=== PATIENT | female | born 2000 | race American Indian/Alaskan Native ===

== ENCOUNTER 2020-05-20 17:42 | Emergency (ER) | payer OTHER ==
[2020-05-20 17:57] VITALS: BP 135/72
--- NOTE | 2020-05-20 18:29 | Event Note ---
ED Screening Note Date of service: 05/20/20 Time: 18:26 ED Screening Note: Pt is a 19 y/o aaf who presents for n/v/d x 1 week with intermittent fevers, no tmax notd at home no fever in triages last po intake this am with n/v, LMP 1 month ago, abd pain described as cramping aching 5/10, there is no vaginal discharge, no bleeding, denies dysuria , frequency, or urgency. Symptoms are exacerbated by po intake, symptoms are relieved by nothing. This initial assessment/diagnostic orders/clinical plan/treatment(s) is/are subject to change based on patients health status, clinical progression and re- assessment by fellow clinical providers in the ED. Further treatment and workup at subsequent clinical providers discretion. Patient/guardian urged not to elope from the ED as their condition may be serious if not clinically assessed and managed. Initial orders include: CMP, CBC, Lipase, UA, HCG
[2020-05-20 19:03] LABS: HCG Qualitative,Urine Positive (Negative)
[2020-05-20 19:06] LABS: Bilirubin,Urine NEG (Negative); Blood,Urine NEG (Negative); Color,Urine Yellow (Yellow); Mucus,Urine FEW /HPF; Protein,Urine <15 mg/dL mg/dL (Negative); Urobilinogen,Urine < 2.0 mg/dL (<2.0); WBC,Urine < 1.0 /HPF (0.0-6.0)
[2020-05-20 19:27] LABS: Basophils % (Auto) 0.2 % (0.0-1.8); Eosinophils # (Auto) 0.1 K/mm3 (0.0-0.4); Eosinophils % (Auto) 0.9 % (0.0-4.3); Hematocrit 39.7 % (30.3-42.9); Hemoglobin 13.5 gm/dl (10.1-14.3); Lymphocytes # (Auto) 1.4 K/mm3 (1.2-5.4); Lymphocytes % (Auto) 23.8 % (13.4-35.0); Mean Corpuscular HGB Conc 34 % (30-34); Mean Corpuscular Volume 90 fl (79-97); Monocytes # (Auto) 0.7 K/mm3 (0.0-0.8); Monocytes % (Auto) 10.9 % (0.0-7.3); Platelet Count 215 K/mm3 (140-440); Red Blood Count 4.39 M/mm3 (3.65-5.03); Red Cell Distribution Width 12.5 % (13.2-15.2)
[2020-05-20 19:39] LABS: Alanine Aminotransferase 12 units/L (7-56); Albumin 4.5 g/dL (3.9-5); Blood Urea Nitrogen 9 mg/dL (7-17); Calcium 9.4 mg/dL (8.4-10.2); Hemolysis Index 5
[2020-05-20 19:49] LABS: BUN/Creatinine Ratio 15
--- NOTE | 2020-05-20 20:39 | Ultrasound Report ---
ULTRASOUND OBSTETRIC INDICATION: First trimester with abdominal pain. TECHNIQUE: Transabdominal. COMPARISON: None available. FINDINGS: GESTATIONAL SAC: Well-defined oval shape and intrauterine in location. YOLK SAC: No significant abnormality. EMBRYO/FETUS: No significant abnormality. - [place]-Rump Length = 0.8 cm = 6 weeks, 5 day(s). - Heart Rate = 152 beats per minute. ADNEXA: A right ovarian dominant follicle measures up to 1.5 cm. The left ovary is not seen. FREE FLUID: None. ADDITIONAL FINDINGS: None. IMPRESSION: 1. Single, living intrauterine with estimated sonographic age of 6 weeks, 5 day(s). Signer Name: Thong Olivera MD Signed: 05/20/2020 8:35 PM Workstation Name: [id number]
--- NOTE | 2020-05-20 21:20 | Emergency Department Report ---
ED General Adult HPI - General Chief complaint: Nausea/Vomiting/Diarrhea Stated complaint: VOMITING;STOMACH PAIN; HEADACHE Time Seen by Provider: 05/20/20 21:17 Source: patient Mode of arrival: Ambulatory Limitations: No Limitations - History of Present Illness Initial comments: Patient is a 19-year-old female presents emergency room with complaints of morning sickness that began a week ago. She states that she has intermittent vomiting just in the morning time. She is able to tolerate p.o. intake. She denies any nausea or vomiting currently. She states that she is also been having some lower abdominal cramping. Patient states that she has been having a few episodes of diarrhea. She states that she had a subjective fever last week but that has completely resolved and she has not had a fever for a week. She denies any vaginal bleeding, vaginal discharge, dysuria, chest pain, shortness of breath, cough, hematochezia, hematemesis, melena, pus in the stool. She denies any sick contacts, recent travel, recent antibiotics, recent camping, water from a different source. She denies any past medical history. No allergies to medications. Last menstrual cycle 04/04/2020. She states this is her first . - Related Data Previous Rx's Medication Instructions Recorded Last Taken Type Acetaminophen [Tylenol] 650 mg PO Q8HR PRN #20 capsule 05/20/20 Unknown Rx Metoclopramide [Reglan] 10 mg PO Q8HR PRN #12 tab 05/20/20 Unknown Rx Allergies Allergy/AdvReac Type Severity Reaction Status Date / Time No Known Allergies Allergy Unverified 05/20/20 17:56 ED Review of Systems ROS: Stated complaint: VOMITING;STOMACH PAIN; HEADACHE Other details as noted in HPI Comment: All other systems reviewed and negative ED Past Medical Hx - Past Medical History Previous Medical History?: No - Surgical History Past Surgical History?: No - Medications Home Medications: Home Medications Medication Instructions Recorded Confirmed Last Taken Type Acetaminophen [Tylenol] 650 mg PO Q8HR PRN #20 capsule 05/20/20 Unknown Rx Metoclopramide [Reglan] 10 mg PO Q8HR PRN #12 tab 05/20/20 Unknown Rx ED Physical Exam - General Limitations: No Limitations General appearance: alert, in no apparent distress - Head Head exam: Present: atraumatic, normocephalic - Eye Eye exam: Present: normal appearance - ENT ENT exam: Present: mucous membranes moist - Respiratory Respiratory exam: Present: normal lung sounds bilaterally. Absent: respiratory distress, wheezes, rales, rhonchi, stridor, chest wall tenderness, accessory muscle use, decreased breath sounds, prolonged expiratory - Cardiovascular Cardiovascular Exam: Present: regular rate, normal rhythm, normal heart sounds. Absent: systolic murmur, diastolic murmur, rubs, gallop - GI/Abdominal GI/Abdominal exam: Present: soft, normal bowel sounds. Absent: distended, tenderness, guarding, rebound, rigid - Neurological Exam Neurological exam: Present: alert, oriented X3 - Psychiatric Psychiatric exam: Present: normal affect, normal mood - Skin Skin exam: Present: warm, dry, intact ED Course Vital Signs 05/20/20 17:56 Temperature 98 F Pulse Rate 100 H Respiratory 16 Rate Blood Pressure 135/72 [Right] O2 Sat by Pulse 98 Oximetry ED Medical Decision Making - Lab Data Result diagrams: 05/20/20 18:58 05/20/20 18:58 Lab Results 05/20/20 05/20/20 05/20/20 Range/Units 18:58 18:58 18:58 WBC 6.0 (4.5-11.0) K/mm3 RBC 4.39 (3.65-5.03) M/mm3 Hgb 13.5 (10.1-14.3) gm/dl Hct 39.7 (30.3-42.9) % MCV 90 (79-97) fl MCH 31 (28-32) pg MCHC 34 (30-34) % RDW 12.5 L (13.2-15.2) % Plt Count 215 (140-440) K/mm3 Lymph % (Auto) 23.8 (13.4-35.0) % [place] % (Auto) 10.9 H (0.0-7.3) % Eos % (Auto) 0.9 (0.0-4.3) % Baso % (Auto) 0.2 (0.0-1.8) % Lymph # (Auto) 1.4 (1.2-5.4) K/mm3 [place] # (Auto) 0.7 (0.0-0.8) K/mm3 Eos # (Auto) 0.1 (0.0-0.4) K/mm3 Baso # (Auto) 0.0 (0.0-0.1) K/mm3 Seg Neutrophils % 64.2 (40.0-70.0) % Seg Neutrophils # 3.9 (1.8-7.7) K/mm3 Sodium 137 (137-145) mmol/L Potassium 3.9 (3.6-5.0) mmol/L Chloride 104.2 (98-107) mmol/L Carbon Dioxide 22 (22-30) mmol/L Anion Gap 15 mmol/L BUN 9 (7-17) mg/dL Creatinine 0.6 (0.6-1.2) mg/dL Estimated GFR > 60 ml/min BUN/Creatinine Ratio 15 % Glucose 78 (65-100) mg/dL Calcium 9.4 (8.4-10.2) mg/dL Total Bilirubin 0.20 (0.1-1.2) mg/dL AST 16 (5-40) units/L ALT 12 (7-56) units/L Alkaline Phosphatase 54 (35-129) units/L Total Protein 7.3 (6.3-8.2) g/dL Albumin 4.5 (3.9-5) g/dL Albumin/Globulin Ratio 1.6 % Lipase 27 (13-60) units/L HCG, Quant (0-4) mIU/mL Urine Color (Yellow) Urine Turbidity (Clear) Urine pH (5.0-7.0) Ur Specific [place] (1.003-1.030) Urine Protein (Negative) mg/dL Urine Glucose (UA) (Negative) mg/dL Urine Ketones (Negative) mg/dL Urine Blood (Negative) Urine Nitrite (Negative) Ur Reducing Substances Urine Bilirubin (Negative) Urine Ictotest Urine Urobilinogen (<2.0) mg/dL Ur Leukocyte Esterase (Negative) Urine WBC (Auto) (0.0-6.0) /HPF Urine RBC (Auto) (0.0-6.0) /HPF U Epithel Cells (Auto) (0-13.0) /HPF Urine Mucus /HPF Urine HCG, Qual (Negative) 05/20/20 05/20/20 Range/Units 18:58 Unknown WBC (4.5-11.0) K/mm3 RBC (3.65-5.03) M/mm3 Hgb (10.1-14.3) gm/dl Hct (30.3-42.9) % MCV (79-97) fl MCH (28-32) pg MCHC (30-34) % RDW (13.2-15.2) % Plt Count (140-440) K/mm3 Lymph % (Auto) (13.4-35.0) % [place] % (Auto) (0.0-7.3) % Eos % (Auto) (0.0-4.3) % Baso % (Auto) (0.0-1.8) % Lymph # (Auto) (1.2-5.4) K/mm3 [place] # (Auto) (0.0-0.8) K/mm3 Eos # (Auto) (0.0-0.4) K/mm3 Baso # (Auto) (0.0-0.1) K/mm3 Seg Neutrophils % (40.0-70.0) % Seg Neutrophils # (1.8-7.7) K/mm3 Sodium (137-145) mmol/L Potassium (3.6-5.0) mmol/L Chloride (98-107) mmol/L Carbon Dioxide (22-30) mmol/L Anion Gap mmol/L BUN (7-17) mg/dL Creatinine (0.6-1.2) mg/dL Estimated GFR ml/min BUN/Creatinine Ratio % Glucose (65-100) mg/dL Calcium (8.4-10.2) mg/dL Total Bilirubin (0.1-1.2) mg/dL AST (5-40) units/L ALT (7-56) units/L Alkaline Phosphatase (35-129) units/L Total Protein (6.3-8.2) g/dL Albumin (3.9-5) g/dL Albumin/Globulin Ratio % Lipase (13-60) units/L HCG, Quant 00212 H (0-4) mIU/mL Urine Color Yellow (Yellow) Urine Turbidity Clear (Clear) Urine pH 7.0 (5.0-7.0) Ur Specific [place] 1.024 (1.003-1.030) Urine Protein <15 mg/dl (Negative) mg/dL Urine Glucose (UA) Neg (Negative) mg/dL Urine Ketones Neg (Negative) mg/dL Urine Blood Neg (Negative) Urine Nitrite Neg (Negative) Ur Reducing Substances Not Reportable Urine Bilirubin Neg (Negative) Urine Ictotest Not Reportable Urine Urobilinogen < 2.0 (<2.0) mg/dL Ur Leukocyte Esterase Neg (Negative) Urine WBC (Auto) < 1.0 (0.0-6.0) /HPF Urine RBC (Auto) 1.0 (0.0-6.0) /HPF U Epithel Cells (Auto) 9.0 (0-13.0) /HPF Urine Mucus Few /HPF Urine HCG, Qual Positive A (Negative) - Radiology Data Radiology results: report reviewed Ordering Physician: AV ART Date of Service: 05/20/20 Procedure(s): US OB <= 14 weeks fetus Accession Number(s): [id number] cc: AV ART ULTRASOUND OBSTETRIC INDICATION: First trimester with abdominal pain. TECHNIQUE: Transabdominal. COMPARISON: None available. FINDINGS: GESTATIONAL SAC: Well-defined oval shape and intrauterine in location. YOLK SAC: No significant abnormality. EMBRYO/FETUS: No significant abnormality. - [place]-Rump Length = 0.8 cm = 6 weeks, 5 day(s). - Heart Rate = 152 beats per minute. ADNEXA: A right ovarian dominant follicle measures up to 1.5 cm. The left ovary is not seen. FREE FLUID: None. ADDITIONAL FINDINGS: None. IMPRESSION: 1. Single, living intrauterine with estimated sonographic age of 6 weeks, 5 day(s). Signer Name: Thong Olivera MD Signed: 05/20/2020 8:35 PM Workstation Name: [id number] Transcribed By: MN Dictated By: Thong Olivera MD Electronically Authenticated By: Thong Olivera MD Signed Date/Time: 05/20/202034 DD/ 33 TD/TT: - Medical Decision Making Patient is a 19-year-old female presents emergency room with complaints of morning sickness that began a week ago. She states that she has intermittent vomiting just in the morning time. She is able to tolerate p.o. intake. She denies any nausea or vomiting currently. She states that she is also been having some lower abdominal cramping. Patient states that she has been having a few episodes of diarrhea. She states that she had a subjective fever last week but that has completely resolved and she has not had a fever for a week. She denies any vaginal bleeding, vaginal discharge, dysuria, chest pain, shortness of breath, cough, hematochezia, hematemesis, melena, pus in the stool. She denies any sick contacts, recent travel, recent antibiotics, recent camping, water from a different source. She denies any past medical history. No allergies to medications. Last menstrual cycle 04/04/2020. She states this is her first . VSS. No abdominal tenderness on exam, no guarding, no rebound, no rigidity, no bowel sounds, no peritoneal signs. [place] [address]. UA is within normal limits. OB ultrasound 1. Single, living intrauterine with estimated sonographic age of 6 weeks, 5 day(s). Patient is tolerating p.o. intake without difficulty. Discussed all results with patient answered questions. Symptoms could be related to morning sickness versus mild gastroenteritis. She has no clinical signs of dehydration, her labs do not show any evidence of dehydration. Do not suspect acute emergent intra-abdominal pathology, no leukocytosis, no fever, tolerating p.o. intake, no abdominal tenderness on exam. Patient has no obstructive symptoms. Patient given prescription for Tylenol and Reglan. Advised patient Please take medication as prescribed. Increase your water intake. Please take a vitamin [id number]. Follow-up with [facility]. Return to emergency room for new or worsening symptoms. Critical care attestation.: If time is entered above; I have spent that time in minutes in the direct care of this critically ill patient, excluding procedure time. ED Disposition Clinical Impression: Morning sickness Qualifiers: Weeks of gestation: less than 8 weeks Qualified Code(s): Z3A.01 - Less than 8 weeks gestation of Disposition: DC-01 TO HOME OR SELFCARE Is pt being admited?: No Does the pt Need Aspirin: No Condition: Stable Instructions: Morning Sickness, Cyop-fo-Flzw, First Trimester of Additional Instructions: Please take medication as prescribed. Increase your water intake. Please take a vitamin [id number]. Follow-up with [facility]. Return to [facility] room for new or worsening symptoms. Prescriptions: Metoclopramide [Reglan] 10 mg PO Q8HR PRN #12 tab PRN Reason: Nausea And Vomiting Acetaminophen [Tylenol] 650 mg PO Q8HR PRN #20 capsule PRN Reason: pain Referrals: PRIMARY CARE, [Primary Care Provider] - 2-3 Days [facility] [Provider Group] - 2-3 Days [facility] [Provider Group] - 2-3 Days [facility] [Provider Group] - 2-3 Days [facility] [Provider Group] - 2-3 Days Time of Disposition: 21:19 Print Language: TOGOLESE
== END 2020-05-20 21:22 | disposition home or self-care (01) ==
LOC: ED 17:42
DX: O21.8 Other vomiting complicating pregnancy (principal); Z3A.01 Less than 8 weeks gestation of pregnancy; Z79.899 Other long term (current) drug therapy
CPT/HCPCS: 36415; 76801; 80053; 81001; 81025; 83690; 84702; 85025

== ENCOUNTER 2020-06-16 12:26 | Emergency (ER) | payer OTHER ==
[2020-06-16 12:33] VITALS: BP 117/66
[2020-06-16] MEDS ORDERED: ONDANSETRON 4 MG/2 ML INJ IV ONE (12:54)
--- NOTE | 2020-06-16 12:55 | Emergency Department Report ---
ED N/V/D HPI - General Chief complaint: Nausea/Vomiting/Diarrhea Stated complaint: POSSIBLE DEHYDRATED/ Time Seen by Provider: 06/16/20 12:35 Source: patient Mode of arrival: Ambulatory Limitations: No Limitations - History of Present Illness Initial comments: 19 year old female who is currently about 11 weeks based based on her last menstrual cycle presents to the ER today with complaints of nausea and vomiting. Patient states that she has been having episodes of nausea and vomiting since she has been but since last 2 states been worse. She states that she has been having difficulty keeping any food or liquids down. Sh e states that she was prescribed Reglan from this ER once before which she has been taking it has not been helping. She states that she goes to both outside medical as well as my [facility]ING [facility]NAGER for care, she states that she has not decided which [facility]NA[facility] office she wants to stick with. She states that she did notify her doctor at [facility] about her nausea and vomiting and they called her in the same prescription for Reglan. She states that she feels like the Reglan is worsening her symptoms. She reports associated left-sided abdominal pain and urinary frequency but she denies any vaginal bleeding, diarrhea, fever, chills, or any other symptoms at this time. She is G1, P0. complaint: nausea, vomiting, other (11 weeks ) - Related Data Previous Rx's Medication Instructions Recorded Last Taken Type Acetaminophen [Tylenol] 650 mg PO Q8HR PRN #20 capsule 05/20/20 Unknown Rx Ondansetron [Zofran Odt] 4 mg PO Q8HR #12 tab.rapdis 06/16/20 Unknown Rx Allergies Allergy/AdvReac Type Severity Reaction Status Date / Time No Known Allergies Allergy Verified 06/16/20 12:29 ED Review of Systems ROS: Stated complaint: POSSIBLE DEHYDRATED/ Other details as noted in HPI Comment: All other systems reviewed and negative Constitutional: denies: chills, fever Eyes: denies: eye pain, eye discharge, vision change ENT: denies: ear pain, throat pain Respiratory: denies: cough, shortness of breath, wheezing Cardiovascular: denies: chest pain, palpitations Gastrointestinal: abdominal pain, nausea, vomiting Genitourinary: frequency. denies: urgency, dysuria, hematuria, discharge, abnormal menses, dyspareunia Musculoskeletal: denies: back pain, joint swelling, arthralgia Neurological: denies: headache, weakness, paresthesias Hematological/Lymphatic: denies: easy bleeding, easy bruising ED Past Medical Hx - Past Medical History Previous Medical History?: No - Surgical History Additional Surgical History: HERNIA - Social History Smoking Status: Never Smoker Substance Use Type: None - Medications Home Medications: Home Medications Medication Instructions Recorded Confirmed Last Taken Type Acetaminophen [Tylenol] 650 mg PO Q8HR PRN #20 capsule 05/20/20 Unknown Rx Ondansetron [Zofran Odt] 4 mg PO Q8HR #12 tab.rapdis 06/16/20 Unknown Rx ED Physical Exam - General Limitations: No Limitations General appearance: alert, in no apparent distress, other (Patient sipping on some water while in triage, and seems to be tolerating it. No vomiting noted) - Head Head exam: Present: atraumatic, normocephalic - Eye Eye exam: Present: normal appearance, PERRL, EOMI Pupils: Present: normal accommodation - ENT ENT exam: Present: normal exam, mucous membranes moist - Neck Neck exam: Present: normal inspection - Respiratory Respiratory exam: Present: normal lung sounds bilaterally. Absent: respiratory distress - Cardiovascular Cardiovascular Exam: Present: regular rate, normal rhythm, normal heart sounds - GI/Abdominal GI/Abdominal exam: Present: soft. Absent: distended, tenderness - Neurological Exam Neurological exam: Present: alert, oriented X3, CN II-XII intact, normal gait - Psychiatric Psychiatric exam: Present: normal affect, normal mood - Skin Skin exam: Present: intact ED Course Vital Signs 06/16/20 12:32 Temperature 99.0 F Pulse Rate 80 Respiratory 18 Rate Blood Pressure 117/66 O2 Sat by Pulse 98 Oximetry ED Medical Decision Making - Lab Data Result diagrams: 06/16/20 14:23 06/16/20 14:23 - Radiology Data Radiology results: report reviewed Ordering Physician: ALLISON RUIZ Date of Service: 06/16/20 Procedure(s): US OB transvaginal Accession Number(s): [id number] cc: ALLISON RUIZ ULTRASOUND OB TRANSVAGINAL HISTORY: Left-sided abdominal pain, 11 weeks COMPARISON: 05/20/2020 TECHNIQUE: Routine transabdominal OB ultrasound performed. FINDINGS: Uterus: Mildly enlarged measuring 12.5 x 5.8 x 8.8 cm. Gestational Sac: Well-defined oval shape and intrauterine in location. Yolk Sac: Not clearly seen Fetus/Embryo: [place]-rump length of 4.2 cm, corresponding to an estimated gestational age of 11 weeks 0 days. Embryonic/ anatomy is too small for evaluation. Embryonic/ cardiac activity: 186bpm Placenta: Too small for evaluation. Amniotic fluid volume: Subjectively appropriate for gestational age. Ovaries: The right ovary is normal in size with normal blood flow, measuring 3.9 x 2.2 x 2.6 cm. A 1.3 cm simple appearing right ovarian cyst is identified. The left ovary is normal in size and appearance with normal blood flow, measuring 2.8 x 1.4 x 2.5 cm. Additional findings: None. IMPRESSION Viable single intrauterine as described. No acute abnormality is detected. 1.3 cm right ovarian cyst. Signer Name: Deandre Reeves Jr, MD Signed: 06/16/2020 2:50 PM Workstation Name: [id number] Transcribed By: TTR Dictated By: DEANDRE REEVES JR, MD Electronically Authenticated By: DEANDRE REEVES JR, MD Signed Date/Time: 06/16/20 1450 DD/ 1446 TD/TT: - Medical Decision Making 19 year old female who is currently about 11 weeks based based on her last menstrual cycle presents to the ER today with complaints of nausea and vomiting. Patient states that she has been having episodes of nausea and vomiting since she has been but since last 2 states been worse. She states that she has been having difficulty keeping any food or liquids down. She states that she was prescribed Reglan from this ER once before which she has been taking it has not been helping. She states that she goes to both outside medical as well as my ART FRAMING MANAGER for care, she states that she has not decided which ART FRAMING MANAGER office she wants to stick with. She states that she did notify her doctor at [facility] about her nausea and vomiting and they called her in the same prescription for Reglan. She states that she feels like the Reglan is worsening her symptoms. She reports associated left-sided abdominal pain and urinary frequency but she denies any vaginal bleeding, diarrhea, fever, chills, or any other symptoms at this time. She is G1, P0. 1612: Patient reports feeling better after meds and fluids. She has been tolerating water and juice in ER and is now stating she is hungry and wants something to eat. Labs/US reviewed. W/u unremarkable today. US show live 11 wk IUP. Pt is well appearing, not not toxic and is not in any distress. Her VS have been stable. Discussed results with patient. Informed her to keep her appointment with [place] this . Will try zofran. She can stop the Reglan. Patient expressed understanding of instructions and agree with plan. Patient was stable at time of discharge. Critical care attestation.: If time is entered above; I have spent that time in minutes in the direct care of this critically ill patient, excluding procedure time. ED Disposition Clinical Impression: Vomiting during , Abdominal pain in Disposition: TO HOME OR SELFCARE Is pt being admited?: No Does the pt Need Aspirin: No Condition: Stable Instructions: Abdominal Pain During , [id number], Nausea and Vomiting, Adult, [id number], Morning Sickness, Oapu-hu-Skec Additional Instructions: I recommend that you take the Zofran as prescribed. You can stop the Reglan. I recommend that you try to sip on fluids frequently. Recommend a bland diet. Keep your appointment with your ART FRAMING MANAGER this coming . You can take Tylenol as needed for pain. Return to the ER if your symptoms changes or worsens in any way. Prescriptions: Ondansetron [Zofran Odt] 4 mg PO Q8HR #12 tab.rapdis Referrals: PRIMARY CARE, [Primary Care Provider] - 3-5 Days [facility] [Provider Group] - 3-5 Days Forms: Work/School Release Form(ED) Time of Disposition: 15:56
[2020-06-16] MEDS ORDERED: SODIUM CHLORIDE 0.9% 1000 ML 1,000 ML IV ONE (13:27)
[2020-06-16 13:42] LABS: Bacteria,Urine 1+ /HPF (Negative); Bilirubin,Urine NEG (Negative); Blood,Urine NEG (Negative); Color,Urine Yellow (Yellow); Mucus,Urine 3+ /HPF; Urobilinogen,Urine < 2.0 mg/dL (<2.0)
[2020-06-16 14:46] LABS: Basophils % (Auto) 0.2 % (0.0-1.8); Eosinophils % (Auto) 0.6 % (0.0-4.3); Hematocrit 37.2 % (30.3-42.9); Hemoglobin 12.8 gm/dl (10.1-14.3); Lymphocytes # (Auto) 1.1 K/mm3 (1.2-5.4); Mean Corpuscular HGB Conc 35 % (30-34); Mean Corpuscular Volume 90 fl (79-97); Monocytes # (Auto) 0.6 K/mm3 (0.0-0.8); Monocytes % (Auto) 11.4 % (0.0-7.3); Platelet Count 174 K/mm3 (140-440); Red Blood Count 4.13 M/mm3 (3.65-5.03); Red Cell Distribution Width 12.6 % (13.2-15.2)
--- NOTE | 2020-06-16 14:54 | Ultrasound Report ---
ULTRASOUND OB TRANSVAGINAL HISTORY: Left-sided abdominal pain, 11 weeks COMPARISON: 05/20/2020 TECHNIQUE: Routine transabdominal OB ultrasound performed. FINDINGS: Uterus: Mildly enlarged measuring 12.5 x 5.8 x 8.8 cm. Gestational Sac: Well-defined oval shape and intrauterine in location. Yolk Sac: Not clearly seen Fetus/Embryo: [place]-rump length of 4.2 cm, corresponding to an estimated gestational age of 11 weeks 0 days. Embryonic/ anatomy is too small for evaluation. Embryonic/ cardiac activity: 186bpm Placenta: Too small for evaluation. Amniotic fluid volume: Subjectively appropriate for gestational age. Ovaries: The right ovary is normal in size with normal blood flow, measuring 3.9 x 2.2 x 2.6 cm. A 1 .3 cm simple appearing right ovarian cyst is identified. The left ovary is normal in size and appeara nce with normal blood flow, measuring 2.8 x 1.4 x 2.5 cm. Additional findings: None. IMPRESSION Viable single intrauterine as described. No acute abnormality is detected. 1.3 cm right ovarian cyst. Signer Name: Deandre Jaffe Jr, MD Signed: 06/16/2020 2:50 PM Workstation Name: [id number]
[2020-06-16 15:05] LABS: Alanine Aminotransferase 15 units/L (7-56); Albumin 4.2 g/dL (3.9-5); Blood Urea Nitrogen 8 mg/dL (7-17); Calcium 8.7 mg/dL (8.4-10.2); Hemolysis Index 4
[2020-06-16 15:08] LABS: BUN/Creatinine Ratio 16
== END 2020-06-16 16:36 | disposition home or self-care (01) ==
LOC: ED 12:26
DX: O21.8 Other vomiting complicating pregnancy (principal); O26.891 Other specified pregnancy related conditions, first trimester; R10.9 Unspecified abdominal pain; Z3A.11 11 weeks gestation of pregnancy; Z98.890 Other specified postprocedural states; Z79.899 Other long term (current) drug therapy
CPT/HCPCS: 36415; 76817; 80053; 81001; 83690; 84702; 85025; 96361; 96374; 99284; J2405; J7030

== ENCOUNTER 2020-10-02 16:13 | Outpatient (CLI) | payer OTHER ==
[2020-10-02] MEDS ORDERED: LACTATED RINGERS 1,000 ML IV ONE (17:02)
[2020-10-02 17:42] LABS: Bilirubin,Urine NEG (Negative); Blood,Urine NEG (Negative); Color,Urine Yellow (Yellow); Mucus,Urine 1+ /HPF; Urobilinogen,Urine < 2.0 mg/dL (<2.0)
[2020-10-02 18:26] VITALS: BP 106/64
[2020-10-02] MEDS ORDERED: FLUCONAZOLE 100 MG TAB PO ONE (18:30)
== END 2020-10-02 18:50 | disposition home or self-care (01) ==
LOC: TRG 16:13 → APU 16:15 → TRG 18:50
DX: Z34.92 Encounter for supervision of normal pregnancy, unspecified, second trimester (principal); Z3A.26 26 weeks gestation of pregnancy
CPT/HCPCS: 36415; 59025; 81001; 82731

== ENCOUNTER 2020-11-25 22:58 | Outpatient (CLI) | payer OTHER ==
[2020-11-25 23:21] VITALS: BP 123/59
[2020-11-26] MEDS ORDERED: LACTATED RINGERS 1,000 ML IV ONE (00:07)
[2020-11-26 00:25] LABS: Bilirubin,Urine NEG (Negative); Blood,Urine NEG (Negative); Color,Urine Amber (Yellow); Mucus,Urine 2+ /HPF
== END 2020-11-26 00:25 | disposition left against medical advice (07) ==
LOC: TRG 22:58 → APU 22:59 → TRG 11-26 00:25
DX: Z34.93 Encounter for supervision of normal pregnancy, unspecified, third trimester (principal); Z3A.34 34 weeks gestation of pregnancy
CPT/HCPCS: 59025; 81001